=== PATIENT | male | born 1990 | race Two or more races ===

== ENCOUNTER 2024-05-24 11:03 | Emergency (ER) | payer OTHER ==
[2024-05-24 11:12] VITALS: BP 126/90; PULSE 61; RESP 16; TEMP 98.6; BMI 34.2
[2024-05-24 13:00] LABS: BASO % 0.4 % (0-2.0); EOS % 2.2 % (0-4.5); HEMATOCRIT 41.1 % (35.4-49); HEMOGLOBIN 13.6 GM/dL (11.7-16.9); LYMPH % 25.9 % (8-40); MCH 28.9 pg (25.7-33.7); MCHC 33.2 g/dl (32.0-35.9); MEAN CELL VOLUME 86.9 fl (80-96); MEAN PLT VOLUME 8.1 fl (7.5-11.1); MONO % 10.3 % (3.8-10.2); NEUT % 61.2 % (42.8-82.8); PLATELET COUNT 236 10^3/uL (134-434); RBC 4.73 M/mm3 (4.00-5.60); WHITE BLOOD COUNT 6.3 K/mm3 (4.0-10.0)
[2024-05-24 13:19] LABS: POTASSIUM 4.1 mmol/L (3.5-5.1)
[2024-05-24 13:21] LABS: ALBUMIN 3.9 g/dl (3.4-5.0); BLOOD UREA NITROGEN 10.9 mg/dL (7-18); CALCIUM 9.2 mg/dL (8.5-10.1)
[2024-05-24 13:24] LABS: CREATININE 0.9 mg/dL (0.55-1.3)
[2024-05-24 13:26] LABS: BILIRUBIN,TOTAL 0.5 mg/dL (0.2-1); TOT PROT 7.3 g/dl (6.4-8.2)
== END 2024-05-24 16:42 | disposition home or self-care (01) ==
LOC: JER 11:03
DX: R00.2 Palpitations (principal); M79.602 Pain in left arm
CPT/HCPCS: 36415; 71046-TC-FY; 80053; 84484; 85025; 93005; 93010; 99285-25